=== PATIENT | female | born 1945 | race Caucasian/White ===

== ENCOUNTER 2018-11-26 07:55 | Emergency (ER) | payer OTHER ==
[~2018-11-26] VITALS: Ht 162.6 cm; Wt 70.0 kg
[2018-11-26 07:59] VITALS: Ht 162.6 cm; Wt 70.0 kg
[2018-11-26] MEDS ORDERED: ASPIRIN 81 MG TAB PO STA (07:59)
[2018-11-26] MEDS ORDERED: NITROGLYCERIN 2% 1 GM OINT PKT TD STA (07:59)
[2018-11-26] MEDS ORDERED: LORAZEPAM 2 MG INJ IV ONE (08:00)
--- NOTE | 2018-11-26 08:50 | ERD ---
ER Documentation Chief Complaint Chief Complaint BIB RA FOR EVAL OF CP AND HAMM. HPI 72-year-old female who presents via EMS for elevated blood pressure and headache. The patient states that she has been under a tremendous amount of s tress recently. She has a known history of hypertension has been compliant with her medications. She notes her blood pressures been elevated. Whenever her blood pressure is elevated she has a headache. She describes it as gradual onset and frontal and similar to headaches in the past. No numbness or tingling or motor weakness. Patient also notes that she may have had some chest pressure over the last 24 to 48 hours. She denies exertional symptoms. No pleuritic pain, no fevers chills or cough. ROS All systems reviewed and are negative except as per history of present illness. Medications Home Meds Reported Medications Valsartan* (Diovan*) 160 Mg Tablet, 160 MG PO DAILY, TAB 11/26/18 Amlodipine Besylate* (Norvasc*) 5 Mg Tablet, 5 MG PO BID, TAB 11/26/18 Allergies Allergies: Coded Allergies: No Known Allergy (Unverified , 11/26/18) PMhx/Soc Medical and Surgical Hx: pt denies Surgical Hx Hx Alcohol Use: No Hx Substance Use: No Hx Tobacco Use: No Smoking Status: Never smoker FmHx Family History: No diabetes Physical Exam Vitals Vital Signs Date Temp Pulse Resp B/P (MAP) Pulse Ox O2 O2 Flow FiO2 Time Delivery Rate 11/26/18 64 18 151/76 99 Room Air 10:28 (101) 11/26/18 Nasal 2 08:08 Cannula 11/26/18 97.9 71 16 184/98 99 07:59 (126) Physical Exam General: Well developed, well nourished, no acute distress Head: Normocephalic, atraumatic. Eyes: Pupils equally reactive, EOM intact ENT: Moist mucous membranes Neck: Supple, no lymphadenopathy Respiratory: Lungs clear bilaterally, no distress Cardiovascular: RRR, no murmurs, rubs, or gallops Abdominal: Soft, non-tender, non-distended, no peritoneal signs : Deferred MSK: No edema, no unilateral swelling, 5/5 strength Neurologic: Alert and oriented, moving all extremities, normal speech, no focal weakness, no cerebellar signs Skin: No rash Psych: Normal mood Result Diagram: 11/26/18 0814 11/26/18 0814 Results 24 hrs Laboratory Tests Test 11/26/18 08:14 11/26/18 11:35 White Blood Count 4.3 10^3/ul Red Blood Count 4.10 10^6/ul Hemoglobin 12.3 g/dl Hematocrit 35.4 % Mean Corpuscular Volume 86.3 fl Mean Corpuscular Hemoglobin 30.0 pg Mean Corpuscular Hemoglobin Concent 34.7 g/dl Red Cell Distribution Width 12.3 % Platelet Count 221 10^3/UL Mean Platelet Volume 9.0 fl Immature Granulocytes % 0.200 % Neutrophils % 56.9 % Lymphocytes % 33.8 % Monocytes % 7.7 % Eosinophils % 0.7 % Basophils % 0.7 % Nucleated Red Blood Cells % 0.0 /100WBC Immature Granulocytes # 0.010 10^3/ul Neutrophils # 2.4 10^3/ul Lymphocytes # 1.4 10^3/ul Monocytes # 0.3 10^3/ul Eosinophils # 0.0 10^3/ul Basophils # 0.0 10^3/ul Nucleated Red Blood Cells # 0.0 10^3/ul Sodium Level 137 mmol/L Potassium Level 3.7 mmol/L Chloride Level 102 mmol/L Carbon Dioxide Level 25 mmol/L Anion Gap 10 Blood Urea Nitrogen 11 mg/dl Creatinine 0.71 mg/dl Est Glomerular Filtrat Rate mL/min mL/min Glucose Level 104 mg/dl Calcium Level 9.1 mg/dl Troponin I < 0.012 ng/ml < 0.012 ng/ml Current Medications Medications Dose Sig/Laverne Start Time Status Last (Trade) Ordered Route PRN Stop Time Admin Dose Reason Admin Aspirin 162 mg ONCE STAT 11/26/18 DC 11/26/18 (Aspirin) PO 07:59 11/26/18 08:29 08:00 1 inch ONCE STAT 11/26/18 DC 11/26/18 Nitroglycerin TD 07:59 11/26/18 08:28 08:00 (Nitroglyceri n 2% Oint) Lorazepam 0.5 mg ONCE ONCE 11/26/18 DC 11/26/18 (Ativan) IV 08:00 11/26/18 08:29 08:01 Procedures/MDM EKG, MONITORS, & DIAGNOSTIC IMAGING: EKG: I reviewed and interpreted a 12-lead EKG. Rhythm: Normal sinus rhythm ST Changes: No contiguous ST segment elevations T waves: No contiguous T wave inversions Impression: No evidence of acute cardiac ischemia Repeat EKG: EKG: I reviewed and interpreted a 12-lead EKG. Rhythm: Normal sinus rhythm ST Changes: No contiguous ST segment elevations T waves: No contiguous T wave inversions Impression: No evidence of acute cardiac ischemia Chest x-ray: I reviewed and interpreted a 1 view of the chest Mediastinum: No enlargement Cardiac silhouette: No cardiomegaly Airspace: Clear lung angelo bilaterally without evidence of pneumothorax Bones: No evidence of fracture PROCEDURES: None LAB INTERPRETATION: * Negative troponin x2 MEDICAL DECISION MAKING: The patient's history, physical exam and clinical presentation is consistent with hypertensive urgency versus emergency. Her chest pain is presented as more of an afterthought. I do not believe her chest pain is consistent with acute coronary syndrome however her blood pressure is elevated and ACS needs to be ruled out. She has no migratory pain, no pain to the middle of her back. I do not believe her blood pressure and chest pain are related to acute aortic dissection. While the patient does have a headache with elevated blood pressure she has a nonfocal neurologic exam. Her headache is similar to chronic headaches when she has elevated blood pressure. She does not take anticoagulants. No indication for CT imaging of the brain. Patient has been under a significant amount of stress recently. This is likely the trigger of her hypertension and nonspecific chest pain. Based on the patient's clinical exam and history and risk factors, I have a much lower clinical concern for pulmonary embolism, acute aortic dissection, p neumothorax, pneumonia, cardiac tamponade HEART Score:3 MACE Rate: Less than 1.7% Shared Decision Making: We had a conversation regarding risk stratification, MACE rate, and the risks, benefits, alternatives of disposition planning options. Disposition planning: Serial troponin and discharge ER COURSE: * Aspirin, nitro, anxiolysis provided * Blood pressure improved. Patient remains asymptomatic. Repeat troponin negative. Observation Note: Indication: Chest pain Duration: Greater than 4 hours Family history: As noted above The patient was observed with serial exams over the above timeframe. The patient continued to be well-appearing, and observation continued without complication. CONSULTATION: None DISPOSITION PLAN: The patient does not have an identifiable emergent medical condition that warrants inpatient hospitalization at this time. The patient is deemed safe for discharge with outpatient follow-up. We discussed follow up with the patient's primary care doctor within 24 to 48 hours as needed. We also discussed return to the emergency room for worsening symptoms or worsening condition. Outpatient referral: None required Discharge Medications: None required Departure Diagnosis: Primary Impression: Hypertensive urgency Additional Impressions: Chest pain Chest pain type: unspecified Qualified Codes: R07.9 - Chest pain, unspecified Anxiety reaction Condition: Stable MARGUERITE BAI MD Nov 26, 2018 08:50
[2018-11-26] MEDS ORDERED: AMLO5TAB4 PO (09:30)
[2018-11-26] MEDS ORDERED: VALS160T20 PO (09:49)
[2018-11-26 13:00] VITALS: BP 169/68; PULSE 71; RESP 18
== END 2018-11-26 13:01 | disposition home or self-care (01) ==
LOC: E/R 07:55
DX: I16.0 Hypertensive urgency (principal); F41.9 Anxiety disorder, unspecified; I10 Essential (primary) hypertension
CPT/HCPCS: 36415; 71045; 80048; 84484; 85025; 93005; 96374; 99285; J2060